=== PATIENT | female | born 1975 | race Caucasian/White ===

== ENCOUNTER 2016-07-09 07:08 | Day surgery (SDC) | payer OTHER ==
[2016-07-09] MEDS ORDERED: DUONEB (A & A) INH ONE (07:55)
[2016-07-09] MEDS ORDERED: LR 1,000 ML ONE (07:56)
[2016-07-09] MEDS ORDERED: MYLICON DROPS (DOSE) MISC ONE (13:52)
[2016-07-09] MEDS ORDERED: FENTANYL ONE (15:05)
[2016-07-09] MEDS ORDERED: VERSED ONE (15:06)
[2016-07-09] MEDS ORDERED: DIPRIVAN 1% 50 ML ONE (15:06)
[2016-07-09] MEDS ORDERED: DIPRIVAN 1% ONE (15:06)
[2016-07-09 15:11] VITALS: BP 128/78
[2016-07-09] MEDS ORDERED: ZOFRAN ONE (15:31)
[2016-07-09] MEDS ORDERED: XYLOCAINE-MPF 2% ONE (15:31)
--- NOTE | 2016-07-15 04:22 | OPERATIVE NOTE ---
PROCEDURE DATE: 07/09/2016 REFERRING PHYSICIAN: Marcelle Koenig MD. INDICATION FOR PROCEDURE: 1. Dysphagia. 2. GERD. 3. Right upper quadrant pain. PROCEDURE PERFORMED: Esophagogastroduodenoscopy with biopsy. PERFORMING PHYSICIAN: Ester Higuera MD. ASSISTANTS: 1. [facility] 2. Robert Dueñas RN. 3. Barb Curiel CRNA. 4. Kye Trevizo MD (anesthesia). COMPLICATIONS: There were no complications. ESTIMATED BLOOD LOSS: 1-2 mL. SPECIMENS REMOVED: 1. Duodenal biopsy. 2. Gastric biopsy. 3. Distal esophageal biopsy. FINDINGS: After sedation was achieved, the upper endoscope was inserted to the 2nd portion of the duodenum. The hypopharynx appeared normal. In the tubular esophagus, there was severe Bibiana esophagitis. There was an irregular GE junction with possible early Chery's at the distal esophagus. The GE junction was measured at 35 cm from the incisors. The salmon-colored tongues above the GE junction were biopsied. There was a hiatal hernia that spanned from 35-40 cm. In the hiatal hernia sac right at the GE junction, there was a superficial whitish-based ulcer on the gastric surface. In the remaining gastric lumen, there were retained gastric secretions in the fundus, consistent with gastroparesis. There was moderate to severe erosive gastritis in the antrum, fundus, and body. There were no gastric varices. The pylorus was patent. There was erythema in the duodenal bulb, consistent with duodenitis. After biopsies were taken, the lumen was decompressed and the scope was removed without incident. IMPRESSION: 1. Bibiana esophagitis. 2. Possible Schatzki's ring. 3. Ulcer at the gastroesophageal junction. 4. Hiatal hernia. 5. Retained gastric secretions, consistent with the patient's known history of gastroparesis. 6. Erosive gastritis. 7. Duodenitis. RECOMMENDATION: 1. Continue Nexium. 2. Add Carafate 1 g 4 times a day for the next 12 weeks, then stop. 3. Add Diflucan orally 200 mg on day 1, followed by 100 mg daily for 20 days for a total of 21 days of treatment. 4. Await biopsy results. 5. The patient admits that she does not rinse her mouth after using her steroid inhalers for the treatment of her COPD. I strongly suspect that this is the cause of the Bibiana. If she fails to respond to therapy, I will check an HIV and a CBC. 6. We will proceed with a colonoscopy as previously scheduled. 7. We will have the patient return to clinic in 4-6 weeks to assess interval progress.
--- NOTE | 2016-07-15 04:29 | OPERATIVE NOTE ---
PROCEDURE DATE: 07/09/2016 REFERRING PHYSICIAN: Marcelle Koenig MD. INDICATION FOR PROCEDURE: 1. History of colon polyps. 2. Worsening constipation. 3. Right upper quadrant pain. PROCEDURE PERFORMED: Colonoscopy with polypectomy. CONSENT: Informed consent was obtained from the patient prior to the procedure. The risks, benefits, and alternatives were discussed. MEDICATIONS: The patient received monitored anesthesia care. PERFORMING PHYSICIAN: Ester Higuera MD. ASSISTANTS: 1. [facility] 2. Robert Dueñas RN. 3. Barb Curiel CRNA. 4. Kye Trevizo MD (anesthesia). COMPLICATIONS: There were no complications. ESTIMATED BLOOD LOSS: 1-2 mL. SPECIMENS REMOVED: 1. Polyps at 25 cm x3. 2. Polyps at 20 cm x3. CECAL INTUBATION TIME: 10 minutes. WITHDRAWAL TIME: 17 minutes. PREP QUALITY: Poor. FINDINGS: After sedation was achieved, the pediatric colonoscope was inserted to the terminal ileum. The terminal ileum, ileocecal valve, and appendiceal orifice appeared grossly normal. There was extensive diverticulosis throughout the entire colon. Although the ascending, transverse, and descending colon appeared grossly normal, there was fecal residue that obscured more than 30% of the colonic lumen. In the sigmoid colon, there were three polyps at 25 cm that ranged in size from 5-10 mm. At 20 cm, there were also three polyps that ranged in size from 5-10 mm. Upon further withdrawal, there were grade 1 internal hemorrhoids. In the rectum, there were multiple rectal polyps that ranged in size from 5-6 mm. On retroflexed view, there were large external hemorrhoids. After the exam was complete, the lumen was decompressed and the scope was removed without incident. RECOMMENDATION: 1. Await biopsy results. 2. I recommend a repeat colonoscopy in the next 6-9 months but no later than 1 year. It should be noted that the patient is reluctant to have another procedure before 1 year due to the nausea with the bowel prep. 3. We will have the patient return to clinic in 4-6 weeks to assess interval progress.
== END 2016-07-09 15:20 | disposition home or self-care (01) ==
LOC: ENDO 07:08
PROVIDERS: ATTEND Internal Medicine Gastroenterology
DX: D12.5 Benign neoplasm of sigmoid colon (principal); R13.10 Dysphagia, unspecified; K21.9 Gastro-esophageal reflux disease without esophagitis; B37.81 Candidal esophagitis; K25.9 Gastric ulcer, unspecified as acute or chronic, without hemorrhage or perforation; K44.9 Diaphragmatic hernia without obstruction or gangrene; K29.00 Acute gastritis without bleeding; K29.80 Duodenitis without bleeding; K64.8 Other hemorrhoids; K64.4 Residual hemorrhoidal skin tags; J44.9 Chronic obstructive pulmonary disease, unspecified; I10 Essential (primary) hypertension
CPT/HCPCS: 88305; 88312; 88313; 94640; J2250; J2405; J3010; J7120